=== PATIENT | female | born 1985 | race Caucasian/White ===

== ENCOUNTER 2024-05-02 12:22 | Outpatient (AMB) | payer OTHER, SELFPAY ==
--- NOTE | 2024-05-02 12:30 | MHC.OFFVIS ---
Vital Signs 05/02/24 12:37 Height 5 ft 1 in Weight 127 lb 10.362 oz BMI 24.1 BP 92/72 Blood Pressure Location Rt brachial Position Sitting Pulse 87 Pulse Oximetry (%) 99 Intake Visit Reasons: + SANDEEP Intake Note: New patient, externally referred by CARMELA Dickey at [facility], presents today for +SANDEEP evaluation. Reports spreading rash x 4 months. Previously seen by Dr. Resendez, no official dx. Supervisor Intermediates Required: No Accompanied by: Self / Same As Patient Allergies acetaminophen [From Percocet] Allergy (Severe, Verified 05/02/24 12:39) Hives codeine Allergy (Severe, Verified 05/02/24 12:39) Hives morphine Allergy (Severe, Verified 05/02/24 12:39) Hives oxycodone [From Percocet] Allergy (Severe, Verified 05/02/24 12:39) Hives HPI Comments Details: Ms. Caldera 38-year-old female presents for evaluation to determine if she has lupus in the context of a rash and positive SANDEEP -saw rheum 3 or 4 years ago with no findings for Lupus or CTD. --Rash to whole body - worst bout about 3 years up to 60 mg per day for 3 weeks plus topicals; last rash was --10 years ago first with joint pain - feels stiff, - intermittent but not daily, no redness, or swelling. --first rash 3 years - sore in top of mouth, gums hurt, finger out of socket - joints feel hot, burning, soreness - usually last at least a week. was treated 3 years never return until 4 months ago and now persisted. 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 --Improved with Benadryl --denies fevers, denies watson pain --recurring mouth sores - anytime she gets stressed - one spot on the roof of her mouth --sun - slight itching , everything feels swollen, sun can wipe her out --fatigue - most challenging symptom. --Saw an electronic security technician before the rash- said she has allergies to shelfish, tree nuts; --Dx POTS - saw a computer systems software engineer --not of Mediterranean decent --ITP during 2/3 pregnancies, no miscarriages. Hgb infusion in 2013 during last --MRI - Had Head injury (fell) 6 years ago; --since head injury she had respiratory infections yearly (PNA, Bronchitis) [facility] Medical History (Updated 05/18/24 @ 17:59 [facility] Fatigue Vitamin D deficiency History of ITP Rash SANDEEP positive section wound complication Neck pain Megaloblastic anemia Swallowing problem Mild persistent asthma, uncomplicated Mild episode of recurrent major depressive disorder Palpitation Postconcussion syndrome Migraine Cluster headache Surgical History (Updated 05/02/24 @ 12:41 by SEBASTIAN Boss) Hx of tonsillectomy Hx of appendectomy Hx of tubal ligation H/O shoulder surgery Family History (Updated 05/02/24 @ 12:42 by SEBASTIAN Boss) Mother Multiple sclerosis Degenerative disorder of bone Breast cancer Arthritis Maternal Grandmother Arthritis Social History (Updated 05/02/24 @ 12:43 by SEBASTIAN Boss) Household Members: Children Alcohol intake: current Alcohol intake frequency: a few times a month Patient Tobacco Use Status: Never used Tobacco Substance Use Type: Marijuana Current occupational status: employed 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 External ear normal. NOSE/SINUS:? Airflow through both nares, no nasal discharge, no bleeding THROAT:? Oral mucosa moist, no ulcerations NECK:? No thyromegaly or masses, no adenopathy, trachea midline. HEART:? Regular rhythm, S1-S2 heard, no murmurs, rubs or gallops. LUNG:? Clear to percussion and auscultation EXTREMITIES:? No edema, no calf tenderness, normal peripheral pulses. NEURO:? Oriented and alert x3.? No focal weakness.? Reflexes symmetric.? Gait normal. SKIN:? There are no skin lesions evident. No objective signs of Raynaud's phenomenon. JOINT EXAM: Cervical Spine:.? Full range of motion without pain; no tenderness. Thoracic Spine:.? No scoliosis.? No tenderness on palpation. Lumbar Spine:.? Alignment normal.? Full range of motion without pain, no tenderness. Chest Wall:.? No tenderness, swelling, increased warmth or erythema. Hands:.? Normal pain-free range of motion without tenderness, swelling, increased warmth or erythema. Able to make a full fist and has a good battery assembler strength. Wrists:.? Normal pain-free range of motion without tenderness, swelling, increased warmth or erythema. Elbows:. Normal pain-free range of motion without tenderness, swelling, increased warmth or erythema. Shoulders:.?? Full range of motion without pain. No tenderness, weakness, swelling, increased warmth or erythema. Hips:.? Full range of motion without pain. Hip bursa:.? No tenderness. Knees:.?? Normal pain-free range of motion without tenderness, swelling, increased warmth or erythema.? There is no effusion or crepitation Ankles:.? Normal pain-free range of motion without tenderness, swelling, increased warmth or erythema. Feet:.? Normal pain-free range of motion without tenderness, swelling, increased warmth or erythema. Tender points:? No tenderness to digital palpation at the occiput, trapezius, second rib, lateral epicondyle, knees, greater trochanter and gluteal area bilaterally. Results Reviewed Results Reviewed: Laboratory Tests 05/02/24 14:03 WBC 5.3 RBC 3.85 L Hgb 13.1 Hct 37.6 ESR 5 LA PTT Screen 34 dRVV Screen 32 AST 18 ALT 15 Lactate Dehydrogenase 149 Total Creatine Kinase 74 C-Reactive Protein < 0.04 Aldolase 3.3 Angiotensin Convert Enz 53 25-OH Vitamin D Total 22 L TSH 1.07 IgG Total 761 IgA Total 281 IgM 158 Rheumatoid Factor < 13.0 Cycl Citrul Peptide IgG <16 Proteinase 3 (PR3) Ab <1.0 Myeloperoxidase Ab <1.0 Thyroglobulin Antibody <1 Thyroid Peroxidase Ab 1 Complement C3 102 Complement C4 20 pertinent labs on referral Labs 02/29/2024 Tick-borne panel: Lyme , Babesia, SANDEEP 1:160 dense fine speckled - low prevalence in systemic autoimmune rheumatic disease ENAs negative: Anti DNA, THIRD RAIL INSTALLER, Vilchis, anti scleroderma 70, Sjogren's, chromatin, anti Aliya 1, anticentromere Sed rate 3 Assessment & Plan Assessment & Plan (1) SANDEEP positive: Code(s): R76.8 - Other specified abnormal immunological findings in serum Category: Medical (2) Rash: Code(s): R21 - Rash and other nonspecific skin eruption Category: Medical (3) History of ITP: Code(s): Z86.2 - Personal history of diseases of the blood and blood-forming organs and certain disorders involving the immune mechanism Category: Medical (4) Fatigue: Code(s): R53.83 - Other fatigue Category: Medical Qualifiers: Fatigue type: chronic, unspecified Qualified Code(s): R53.82 - Chronic fatigue, unspecified Plan #+SANDEEP/Rash: I do not think the patient has the clinical presentation of an autoimmune process that would explain the rash. The SANDEPE (1:160) is positive but the ENAs are negative. In addition the SANDEEP pattern is dense fine speckled which carries a low probability for autoimmune process. After initial review of her history and physical examination, I think this is more allergy related with possible angioedema. I think the patient would benefit from a DERM consult - she is on a wait list. She can continue management with Prednisoen as need, through the PCP until then. Given that the rash is also improved with Benadryl, she should also revisit the electronic security technician since this rash started after the first evaluation. #Fatigue: Fatigue is common symptoms of many processes. Depression and chronic headache can promote fatigue, insomnia. Some of her medications also has fatigue as side effect - Citirizine, Venlafaxine I spent 40 minutes reviewing history, evaluating patient and documenting. f/u as needed. Patient will contacted for any adverse findings. Orders: Orders Cyclic Citrullinated Peptide 05/02/24 R76.8 - Other specified abnormal immunological findings in serum, R21 - Rash and other nonspecific skin eruption, Z86.2 - Personal history of diseases of the blood and blood-forming organs and certain disorders involving the immune mechanism Complement C3 05/02/24 R76.8 - Other specified abnormal immunological findings in serum, R21 - Rash and other nonspecific skin eruption, Z86.2 - Personal history of diseases of the blood and blood-forming organs and certain disorders involving the immune mechanism C Reactive Protein 05/02/24 R76.8 - Other specified abnormal immunological findings in serum, R21 - Rash and other nonspecific skin eruption, Z86.2 - Personal history of diseases of the blood and blood-forming organs and certain disorders involving the immune mechanism ANCA Vasculitides 05/02/24 R76.8 - Other specified abnormal immunological findings in serum, R21 - Rash and other nonspecific skin eruption, Z86.2 - Personal history of diseases of the blood and blood-forming organs and certain disorders involving the immune mechanism Erythrocyte Sedimentation Rate 05/02/24 R76.8 - Other specified abnormal immunological findings in serum, R21 - Rash and other nonspecific skin eruption, Z86.2 - Personal history of diseases of the blood and blood-forming organs and certain disorders involving the immune mechanism Immunofixation Pnl, Serum 05/02/24 R76.8 - Other specified abnormal immunological findings in serum, R21 - Rash and other nonspecific skin eruption, Z86.2 - Personal history of diseases of the blood and blood-forming organs and certain disorders involving the immune mechanism Immunoglobulins,IgG IgA IgM 05/02/24 R76.8 - Other specified abnormal immunological findings in serum, R21 - Rash and other nonspecific skin eruption, Z86.2 - Personal history of diseases of the blood and blood-forming organs and certain disorders involving the immune mechanism Protein Electrophoresis, Serum 05/02/24 R76.8 - Other specified abnormal immunological findings in serum, R21 - Rash and other nonspecific skin eruption, Z86.2 - Personal history of diseases of the blood and blood-forming organs and certain disorders involving the immune mechanism Cardiolipin Antibodies 05/02/24 R76.8 - Other specified abnormal immunological findings in serum, R21 - Rash and other nonspecific skin eruption, Z86.2 - Personal history of diseases of the blood and blood-forming organs and certain disorders involving the immune mechanism Phosphorus 05/02/24 R76.8 - Other specified abnormal immunological findings in serum, R21 - Rash and other nonspecific skin eruption, Z86.2 - Personal history of diseases of the blood and blood-forming organs and certain disorders involving the immune mechanism Thyroglobulin Antibodies 05/02/24 R76.8 - Other specified abnormal immunological findings in serum, R21 - Rash and other nonspecific skin eruption, Z86.2 - Personal history of diseases of the blood and blood-forming organs and certain disorders involving the immune mechanism Lactate Dehydrogenase 05/02/24 R21 - Rash and other nonspecific skin eruption, R76.8 - Other specified abnormal immunological findings in serum Rheumatoid Factor 05/02/24 R76.8 - Other specified abnormal immunological findings in serum, R21 - Rash and other nonspecific skin eruption, Z86.2 - Personal history of diseases of the blood and blood-forming organs and certain disorders involving the immune mechanism Complement C4 05/02/24 R76.8 - Other specified abnormal immunological findings in serum, R21 - Rash and other nonspecific skin eruption, Z86.2 - Personal history of diseases of the blood and blood-forming organs and certain disorders involving the immune mechanism Complete Blood Count Auto Diff 05/02/24 R76.8 - Other specified abnormal immunological findings in serum, R21 - Rash and other nonspecific skin eruption, Z86.2 - Personal history of diseases of the blood and blood-forming organs and certain disorders involving the immune mechanism Comprehensive Met. Panel 05/02/24 R76.8 - Other specified abnormal immunological findings in serum, R21 - Rash and other nonspecific skin eruption, Z86.2 - Personal history of diseases of the blood and blood-forming organs and certain disorders involving the immune mechanism Creatine Kinase Total 05/02/24 R76.8 - Other specified abnormal immunological findings in serum, R21 - Rash and other nonspecific skin eruption, Z86.2 - Personal history of diseases of the blood and blood-forming organs and certain disorders involving the immune mechanism Angiotensin Converting Enzyme 05/02/24 R76.8 - Other specified abnormal immunological findings in serum, R21 - Rash and other nonspecific skin eruption, Z86.2 - Personal history of diseases of the blood and blood-forming organs and certain disorders involving the immune mechanism Aldolase 05/02/24 R76.8 - Other specified abnormal immunological findings in serum, R21 - Rash and other nonspecific skin eruption, Z86.2 - Personal history of diseases of the blood and blood-forming organs and certain disorders involving the immune mechanism UA w Microscopic 05/02/24 R76.8 - Other specified abnormal immunological findings in serum, R21 - Rash and other nonspecific skin eruption, Z86.2 - Personal history of diseases of the blood and blood-forming organs and certain disorders involving the immune mechanism Vitamin D 25-OH (D2 and D3) 05/02/24 R76.8 - Other specified abnormal immunological findings in serum, R21 - Rash and other nonspecific skin eruption, Z86.2 - Personal history of diseases of the blood and blood-forming organs and certain disorders involving the immune mechanism Lupus Anticoagulant Panel 05/02/24 R76.8 - Other specified abnormal immunological findings in serum, R21 - Rash and other nonspecific skin eruption, Z86.2 - Personal history of diseases of the blood and blood-forming organs and certain disorders involving the immune mechanism Beta-2 Glycoprotein Antibody 05/02/24 R76.8 - Other specified abnormal immunological findings in serum, R21 - Rash and other nonspecific skin eruption, Z86.2 - Personal history of diseases of the blood and blood-forming organs and certain disorders involving the immune mechanism Magnesium 05/02/24 R76.8 - Other specified abnormal immunological findings in serum, R21 - Rash and other nonspecific skin eruption, Z86.2 - Personal history of diseases of the blood and blood-forming organs and certain disorders involving the immune mechanism Alkaline Phosphatase Bone 05/02/24 R76.8 - Other specified abnormal immunological findings in serum, R21 - Rash and other nonspecific skin eruption, Z86.2 - Personal history of diseases of the blood and blood-forming organs and certain disorders involving the immune mechanism Thyroid Peroxidase Antibodies 05/02/24 R76.8 - Other specified abnormal immunological findings in serum, R21 - Rash and other nonspecific skin eruption, Z86.2 - Personal history of diseases of the blood and blood-forming organs and certain disorders involving the immune mechanism Thyroid Stimulating Hormone 05/02/24 R76.8 - Other specified abnormal immunological findings in serum, R21 - Rash and other nonspecific skin eruption, Z86.2 - Personal history of diseases of the blood and blood-forming organs and certain disorders involving the immune mechanism Coding Level of Care Code New Pt Level 4 (44046) Diagnoses SANDEEP positive R76.8 Rash R21 History of ITP Z86.2 Chronic fatigue R53.82 Fatigue type: chronic, unspecified
[2024-05-02 12:37] VITALS: BP 92/72; PULSE 87; O2SAT 99; BMI 24.1
== END 2024-05-02 13:35 | disposition home or self-care (01) ==
PROVIDERS: Visit Provider Nurse Practitioner Family
DX: R76.8 Other specified abnormal immunological findings in serum (principal); R21 Rash and other nonspecific skin eruption; Z86.2 Personal history of diseases of the blood and blood-forming organs and certain disorders involving the immune mechanism; R53.82 Chronic fatigue, unspecified
CPT/HCPCS: 99204

== ENCOUNTER 2024-05-02 12:22 | Outpatient (REF) | payer OTHER, SELFPAY ==
[2024-05-02 14:05] LABS: MANUAL DIFF FLAG NO
[2024-05-02 14:21] LABS: Basophils Percent Auto 0.8 % (0-2); Eosinophils Percent Auto 0.6 % (0-4); Hematocrit 37.6 % (37.0-47.0); Hemoglobin 13.1 g/dl (12.0-16.0); Imm Gran Abs Auto 0.01 X10*3/uL (0.00-0.03); Imm Gran Pct Auto 0.2 % (0.0-0.4); Lymphocytes Absolute Auto 1.7 X10*3/uL (1.2-4.9); Lymphocytes Percent Auto 32.8 % (20-40); Mean Corpuscular HGB Conc 34.8 g/dl (31.0-35.0); Mean Corpuscular Volume 97.7 fL (80.0-98.0); Mean Platelet Volume 9.3 fL (9.4-12.3); Monocytes Absolute Auto 0.4 X10*3/uL (0.1-1.2); Monocytes Percent Auto 7.2 % (2-11); Neutrophils Absolute Auto 3.1 x10*3/uL (2.0-8.3); Neutrophils Percent Auto 58.4 % (45-73); Platelet Count 210 X10*3/uL (160-400); Red Blood Count 3.85 X10*6/uL (4.20-5.50); Red Cell Distribution Width 12.7 % (11.0-16.0); White Blood Count 5.3 X10*3/uL (4.8-10.8)
[2024-05-02 14:24] LABS: Appearance Urine Clear; Color Urine Yellow; Glucose Urine UA Negative (Negative); Leukocyte Esterase Urine Negative (Negative); Nitrite Urine Negative (Negative); PH 7.5 (5.0-9.0); Specific Gravity - Urine <= 1.005 (1.005-1.025); Urine Blood Negative (Negative); Urine Ketones Negative (Negative); Urine Protein Negative (Neg-Trace)
[2024-05-02 14:27] LABS: Bacteria Urine None Seen (None Seen); Hyaline Casts Urine 0-2 /LPF (0-2); RBC Urine 0-2 /HPF (0-2); Squamous Epithelial Cell Urine 0-2 /HPF (0-2); WBC Urine 0-5 /HPF (0-5)
[2024-05-02 14:50] LABS: Rheumatoid Factor < 13.0 IU/mL (<15.0)
[2024-05-02 15:01] LABS: Erythrocyte Sedimentation Rate 5 MM/HR (0-20)
[2024-05-02 15:19] LABS: Alanine Aminotransferase 15 U/L (0-31); Albumin Level 4.5 g/dL (3.5-5.0); Alkaline Phosphatase 48 U/L (39-117); Anion Gap 11 (12-20); Aspartate Amino Transferase 18 U/L (5-31); Bilirubin Total 0.4 mg/dL (0.0-1.0); Blood Urea Nitrogen 9 mg/dL (9-16); C Reactive Protein < 0.04 mg/dL (< or = 0.50); Calcium 9.7 mg/dL (8.4-10.2); Carbon Dioxide 27 mmol/L (22-29); Chloride 107 mmol/L (96-108); Estimated Glomerular Filt Rate > 60; Glucose Random 90 mg/dL (60-115); Lactate Dehydrogenase 149 U/L (122-220); Phosphorus 2.8 mg/dL (2.7-4.5); Sodium 141 mmol/L (135-145); Total Protein 7.1 g/dL (6.5-8.0)
[2024-05-02 15:20] LABS: Thyroid Stimulating Hormone 1.07 uIU/mL (0.32-4.0)
[2024-05-03 14:23] LABS: Complement C3 102 mg/dL (83-193)
[2024-05-03 18:13] LABS: Thyroglobulin Antibodies <1 IU/mL (< or = 1)
[2024-05-03 20:03] LABS: Cardiolipin IgG Ab <2.0 GPL-U/mL; Cardiolipin IgM Ab <2.0 MPL-U/mL
[2024-05-03 20:09] LABS: Myeloperoxidase Antibody <1.0 AI; Proteinase 3 PR3 Antibodies <1.0 AI
[2024-05-03 21:29] LABS: Prot Elec - Albumin 4.4 g/dL (3.8-4.8); Prot Elec - Alpha1 0.2 g/dL (0.2-0.3); Prot Elec - Alpha2 0.7 g/dL (0.5-0.9); Prot Elec - Beta 1 0.5 g/dL (0.4-0.6); Prot Elec - Beta 2 0.4 g/dL (0.2-0.5); Prot Elec - Gamma 0.7 g/dL (0.8-1.7); Prot Elec - Total Protein 6.8 g/dL (6.1-8.1)
[2024-05-03 21:33] LABS: Thyroid Peroxidase Antibodies 1 IU/mL (<9)
[2024-05-04 20:03] LABS: Cyclic Citrullinated Peptide <16 UNITS
[2024-05-05 06:44] LABS: PTT (LAC) Screen 34 sec (<=40)
[2024-05-05 12:18] LABS: IgA 281 mg/dL (47-310); IgG 761 mg/dL (600-1640); IgM 158 mg/dL (50-300)
[2024-05-05 21:14] LABS: Alkaline Phosphatase Bone 9.5 mcg/L (5.3-19.5)
[2024-05-07 16:14] LABS: Vitamin D 25-OH, D2 <4 ng/mL; Vitamin D 25-OH, D3 22 ng/mL; Vitamin D 25-OH, Total 22 ng/mL (30-100)
[2024-05-09 06:24] LABS: Angiotensin Converting Enzyme 53 U/L (9-67)
[2024-05-12 22:59] LABS: Aldolase 3.3 U/L (<=8.1)
[2024-05-15 16:24] LABS: Beta-2 Glycoprotein IgA <2.0 U/mL (<20.0); Beta-2 Glycoprotein IgG <2.0 U/mL (<20.0); Beta-2 Glycoprotein IgM <2.0 U/mL (<20.0)
== END 2024-05-02 12:23 | disposition home or self-care (01) ==
LOC: HO.LAB 12:22
PROVIDERS: PCP Internal Medicine; Visit Provider Nurse Practitioner Family
DX: R21 Rash and other nonspecific skin eruption (principal); R76.8 Other specified abnormal immunological findings in serum; Z86.2 Personal history of diseases of the blood and blood-forming organs and certain disorders involving the immune mechanism
CPT/HCPCS: 36415; 80053; 81001; 82085; 82164; 82306; 82550; 82784; 83615; 83735; 84075; 84100; 84165; 84443; 85025; 85597; 85598; 85613; 85652; 85730; 86021; 86140; 86146; 86147; 86160; 86200; 86334; 86376; 86431; 86800; 99202